=== PATIENT | female | born 1950 | race Caucasian/White ===

== ENCOUNTER 2025-07-10 09:34 | Inpatient (IN) | payer OTHER ==
[~2025-07-10] VITALS: Ht 157.5 cm; Wt 68.9 kg
[2025-07-10] MEDS: SODIUM CHLORIDE 0.9% 1,000 ML IV ONE (09:58)
[2025-07-10] MEDS: PIPERACILLIN/TAZO 3.375G/50ML 50 ML IV ONE (10:06)
[2025-07-10 10:16] LABS: HEMATOCRIT. 33.7 % (36.0-48.0); HEMOGLOBIN. 10.6 g/dL (12.0-16.0); MEAN PLATELET VOLUME 9.4 fl (7.4-10.4); PLATELET 307 x1000/uL (130-400); RED BLOOD CELL COUNT 3.64 mill/uL (4.2-5.4); RED CELL DISTRIBUTION WIDTH 18.2 % (11.6-14.6)
[2025-07-10 10:26] LABS: INR 1.0
[2025-07-10 10:32] LABS: CREATININE 3.6 mg/dL (0.6-1.0)
[2025-07-10 10:33] LABS: UREA NITROGEN BLOOD 28 mg/dL (9-23)
[2025-07-10 10:34] LABS: ASPARTATE AMINOTRANSFERASE 26 IU/L (<34)
[2025-07-10 10:35] LABS: BILIRUBIN DIRECT 0.1 mg/dL (<=3.0); BILIRUBIN TOTAL 0.4 mg/dL (0.1-1.0); PROTEIN TOTAL 6.3 g/dL (6.0-8.3)
[2025-07-10] MEDS: VANCOMYCIN 1G PREMIX 200 ML IV ONE (10:37)
[2025-07-10 10:51] LABS: BAND% 4.0 % (1.0-6.0); LYMPHOCYTES % MANUAL 4.0 % (20.0-60.0); MONOCYTES % MANUAL 3.0 % (2.0-8.0); NEUTROPHILS % MANUAL 89.0 % (45.0-75.0); PLATELET ESTIMATE NORMAL
[2025-07-10] MEDS ORDERED: ENOXAPARIN 40MG/0.4ML SYR SUBCUT SCH (11:45)
[2025-07-10] MEDS ORDERED: MAGNESIUM/ALUMINUM HYDROXIDE/SIMETHICONE 30ML UDC PO PRN (11:45)
[2025-07-10] MEDS ORDERED: SODIUM CHLORIDE 0.9% 1,000 ML IV SCH (12:00)
[2025-07-10] MEDS ORDERED: NALOXONE HCL 0.4MG/ML VIAL IV PRN (12:00)
[2025-07-10 14:00] VITALS: BP 167/60; PULSE 72; RESP 20; TEMP 36.3068
[2025-07-10] MEDS: ENOXAPARIN 30MG/0.3ML SYR SUBCUT SCH (14:07)
[2025-07-10] MEDS: CLONIDINE 0.1MG TABLET PO PRN (14:07)
[2025-07-10] MEDS: PANTOPRAZOLE SODIUM 40 MG/VIAL IV SCH (14:15)
[2025-07-10] MEDS ORDERED: ATOR-2 PO (14:43)
[2025-07-10] MEDS ORDERED: NATE60TA13 PO (14:43)
[2025-07-10] MEDS ORDERED: FURO40TA5 PO (14:43)
[2025-07-10] MEDS ORDERED: HYDR50TA39 PO (14:43)
[2025-07-10] MEDS ORDERED: METO100T16 PO (14:43)
[2025-07-10] MEDS ORDERED: GABA-529 PO (14:43)
[2025-07-10] MEDS ORDERED: CALC667C PO (14:43)
[2025-07-10] MEDS ORDERED: VALS80TA30 PO (14:43)
[2025-07-10] MEDS ORDERED: FERR325T6 PO (14:46)
[2025-07-10] MEDS ORDERED: [UNRECOGNIZED DRUG - OTHER] PO (14:49)
[2025-07-10] MEDS ORDERED: DILT120C46 MT (14:49)
[2025-07-10 16:00] VITALS: BP 121/46; PULSE 71; RESP 20; TEMP 36.3; O2SAT 97
[2025-07-10 18:14] LABS: TROPONIN I HIGH SENSITIVITY 3044 ng/L (3.0-34)
[2025-07-10 20:00] VITALS: BP 134/56; PULSE 75; RESP 18; TEMP 36.3; O2SAT 96
[2025-07-10] MEDS: PIPERACILLIN/TAZO 3.375G/50ML 50 ML IV SCH (20:42)
[2025-07-10 21:22] VITALS: PULSE 75; RESP 18
[2025-07-10] MEDS: IPRATROPIUM/ALBUTEROL 0.5-3(2.5)MG/3ML NEB NEB SCH (21:22)
[2025-07-10] MEDS: ZOLPIDEM TARTRATE 5MG TABLET PO PRN (21:46)
[2025-07-10] MEDS: ACETYLCYSTEINE 200MG/ML 20% VIAL 4ML INH SCH (22:00)
[2025-07-11] VITALS (11 sets, daily range): BP systolic 131–193; BP diastolic 38–72; PULSE 70–101; RESP 16–20; TEMP 36.1–36.9; O2SAT 95–99
[2025-07-11 02:07] LABS: TROPONIN I HIGH SENSITIVITY 7570 ng/L (3.0-34)
[2025-07-11 07:40] LABS: UREA NITROGEN BLOOD 45.0 mg/dL (9-23)
[2025-07-11 07:50] LABS: CREATININE 5.9 mg/dL (0.6-1.0)
[2025-07-11 07:59] LABS: BASOPHILS % 0.5 % (0.0-2.0); EOSINOPHILS % 0.2 % (0.0-5.0); HEMATOCRIT. 33.5 % (36.0-48.0); HEMOGLOBIN. 10.5 g/dL (12.0-16.0); LYMPHOCYTES % 9.1 % (20.0-50.0); MEAN PLATELET VOLUME 9.4 fl (7.4-10.4); MONOCYTES % 7.4 % (2.0-8.0); NEUTROPHILS % 82.8 % (40.0-76.0); PLATELET 266 x1000/uL (130-400); RED BLOOD CELL COUNT 3.63 mill/uL (4.2-5.4); RED CELL DISTRIBUTION WIDTH 18.4 % (11.6-14.6)
[2025-07-11] MEDS: ENOXAPARIN 60MG/0.6ML SYR SUBCUT SCH (13:00)
[2025-07-11 13:25] LABS: HEPATITIS A AB IGM NEGATIVE (Negative); HEPATITIS B CORE AB IGM NEGATIVE (Negative)
[2025-07-11 13:26] LABS: HEPATITIS C AB NON REACTIVE (Neg) (Negative)
[2025-07-11] MEDS: VANCOMYCIN 750MG PMX (XELLIA) 150 ML IV SCH (14:43)
[2025-07-11] MEDS: HYDROCODONE/ACETAMINOPHEN 5/325MG TABLET PO PRN (14:44)
[2025-07-11 15:18] LABS: PROTEIN BODY FLUID 3.7 gm/dL
[2025-07-11] MEDS ORDERED: VALS160T28 (19:55)
[2025-07-11] MEDS ORDERED: NIFE-72 (19:55)
[2025-07-11] MEDS ORDERED: DILT30TA3 PO (19:55)
[2025-07-11] MEDS ORDERED: BLOO-1686 (19:55)
[2025-07-11 23:21] LABS: BODY FLUID MONOCYTES 3 %; BODY FLUID RBC 349500 /cu mm (0-2000); BODY FLUID WBC 59 /cu mm (0-200)
[2025-07-12] VITALS (17 sets, daily range): BP systolic 97–180; BP diastolic 40–80; PULSE 65–147; RESP 14–23; TEMP 36.114–37.5; O2SAT 95–100
[2025-07-12] MEDS: DILTIAZEM HCL 5MG/ML 5ML VIAL IV SCH (01:34)
[2025-07-12] MEDS: METOPROLOL TARTRATE 25MG TABLET PO SCH (01:58)
[2025-07-12 06:31] LABS: HEMATOCRIT. 30.2 % (36.0-48.0); HEMOGLOBIN. 9.8 g/dL (12.0-16.0); MEAN PLATELET VOLUME 9.4 fl (7.4-10.4); PLATELET 238 x1000/uL (130-400); RED BLOOD CELL COUNT 3.31 mill/uL (4.2-5.4); RED CELL DISTRIBUTION WIDTH 18.0 % (11.6-14.6)
[2025-07-12] MEDS: DIGOXIN 500MCG/2ML AMP IV SCH (06:49)
[2025-07-12 07:12] LABS: UREA NITROGEN BLOOD 42.0 mg/dL (9-23)
[2025-07-12 07:31] LABS: CREATININE 6.0 mg/dL (0.6-1.0)
[2025-07-12] MEDS: METOPROLOL TARTRATE 50MG TABLET PO NR (08:44)
[2025-07-12] MEDS ORDERED: ASPIRIN 81MG TABLET PO SCH (09:00)
[2025-07-12] MEDS ORDERED: AMIODARONE HCL 150 MG in DEXT 5% WATER 100 ML IV NR (09:00)
[2025-07-12] MEDS: ASPIRIN 81MG EC TABLET PO SCH (09:51)
[2025-07-12] MEDS: FAMOTIDINE 20MG/2ML VIAL IV SCH (09:51)
[2025-07-12] MEDS: AMIODARONE 150MG/100ML D5W 100 ML IV SCH (11:47)
[2025-07-12] MEDS: AMIODARONE HCL 900 MG in DEXT 5% WATER 482 ML IV SCH (12:00)
[2025-07-12] MEDS: ISOSORBIDE MONONITRATE 30MG TABLET SR 24HR PO SCH (12:40)
[2025-07-12] MEDS: AMLODIPINE 10MG TABLET PO SCH (12:57)
[2025-07-12 13:39] LABS: BAND% 2.0 % (1.0-6.0); EOSINOPHILS % MANUAL 1.0 % (0.0-5.0); LYMPHOCYTES % MANUAL 6.0 % (20.0-60.0); MONOCYTES % MANUAL 2.0 % (2.0-8.0); NEUTROPHILS % MANUAL 89.0 % (45.0-75.0); PLATELET ESTIMATE NORMAL
[2025-07-12] MEDS ORDERED: IOHEXOL-350 100 ML BOTTLE ONE (22:11)
[2025-07-13] VITALS (21 sets, daily range): BP systolic 124–179; BP diastolic 44–89; PULSE 81–96; RESP 13–24; TEMP 36.3–37; O2SAT 90–100
[2025-07-13 07:15] LABS: UREA NITROGEN BLOOD 53.0 mg/dL (9-23)
[2025-07-13 07:23] LABS: BASOPHILS % 0.3 % (0.0-2.0); EOSINOPHILS % 2.6 % (0.0-5.0); HEMATOCRIT. 28.7 % (36.0-48.0); HEMOGLOBIN. 9.2 g/dL (12.0-16.0); LYMPHOCYTES % 7.8 % (20.0-50.0); MEAN PLATELET VOLUME 9.3 fl (7.4-10.4); MONOCYTES % 8.8 % (2.0-8.0); NEUTROPHILS % 80.5 % (40.0-76.0); PLATELET 227 x1000/uL (130-400); RED BLOOD CELL COUNT 3.10 mill/uL (4.2-5.4); RED CELL DISTRIBUTION WIDTH 18.3 % (11.6-14.6)
[2025-07-13 07:33] LABS: CREATININE 7.4 mg/dL (0.6-1.0)
[2025-07-13] MEDS: ACETAMINOPHEN 325MG TABLET PO PRN (13:01)
[2025-07-13] MEDS ORDERED: INSULIN LISPRO 100 UNITS/ML SUBCUT SCH (14:00)
[2025-07-13] MEDS ORDERED: DEXTROSE 50% WATER 50ML SYRINGE IV PRN (14:15)
[2025-07-13] MEDS: INSULIN LISPRO 100 UNITS/ML SUBCUT SCH (14:15)
[2025-07-13] MEDS: BLOOD SUGAR DIAGNOSTIC STRIP TEST SCH (14:15)
[2025-07-13] MEDS ORDERED: BLOOD SUGAR DIAGNOSTIC STRIP TEST SCH (17:30)
[2025-07-14] VITALS (20 sets, daily range): BP systolic 97–175; BP diastolic 50–81; PULSE 82–138; RESP 15–19; TEMP 36.3918–37.2; O2SAT 95–100
[2025-07-14 09:49] LABS: BASOPHILS % 0.5 % (0.0-2.0); EOSINOPHILS % 2.5 % (0.0-5.0); HEMATOCRIT. 27.7 % (36.0-48.0); HEMOGLOBIN. 9.0 g/dL (12.0-16.0); LYMPHOCYTES % 7.7 % (20.0-50.0); MEAN PLATELET VOLUME 9.0 fl (7.4-10.4); MONOCYTES % 8.0 % (2.0-8.0); NEUTROPHILS % 81.3 % (40.0-76.0); PLATELET 239 x1000/uL (130-400); RED BLOOD CELL COUNT 3.03 mill/uL (4.2-5.4); RED CELL DISTRIBUTION WIDTH 18.5 % (11.6-14.6)
[2025-07-14 10:03] LABS: UREA NITROGEN BLOOD 71.0 mg/dL (9-23)
[2025-07-14] MEDS ORDERED: AMIODARONE HCL 900 MG in DEXT 5% WATER 482 ML IV SCH (11:00)
[2025-07-14 11:01] LABS: CREATININE 8.7 mg/dL (0.6-1.0)
[2025-07-14] MEDS: DIGOXIN 500MCG/2ML AMP IV SCH (11:42)
[2025-07-14] MEDS: IPRATROPIUM/ALBUTEROL 0.5-3(2.5)MG/3ML NEB HHN PRN (21:20)
[2025-07-14] MEDS: HYDRALAZINE 20MG/ML VIAL IV PRN (22:23)
[2025-07-14] MEDS ORDERED: HYDRALAZINE 20MG/ML VIAL IV PRN (22:30)
[2025-07-15] VITALS (13 sets, daily range): BP systolic 155–172; BP diastolic 51–68; PULSE 90–106; RESP 17–21; TEMP 36.8–37.3; O2SAT 95–100
[2025-07-15] MEDS ORDERED: HYDRALAZINE 20MG/ML VIAL IV SCH
[2025-07-15 07:39] LABS: HEMATOCRIT. 31.1 % (36.0-48.0); HEMOGLOBIN. 10.0 g/dL (12.0-16.0); MEAN PLATELET VOLUME 8.5 fl (7.4-10.4); PLATELET 295 x1000/uL (130-400); RED BLOOD CELL COUNT 3.38 mill/uL (4.2-5.4); RED CELL DISTRIBUTION WIDTH 18.8 % (11.6-14.6)
[2025-07-15 07:56] LABS: UREA NITROGEN BLOOD 62.0 mg/dL (9-23)
[2025-07-15 07:58] LABS: CREATININE 8.1 mg/dL (0.6-1.0)
[2025-07-15] MEDS ORDERED: LIDOCAINE HCL 1% 10 MG/ML 10ML VIAL ONE (09:16)
[2025-07-15] MEDS ORDERED: MIDAZOLAM HCL 2 MG/2 ML VIAL ONE (09:16)
[2025-07-15] MEDS ORDERED: DIPHENHYDRAMINE 50MG/ML VIAL ONE (09:16)
[2025-07-15] MEDS ORDERED: VERAPAMIL HCL 2.5 MG/1 ML 2ML VIAL IV ONE (09:16)
[2025-07-15] MEDS ORDERED: FENTANYL CITRATE/PF 50MCG/ML 2ML VIAL ONE (09:16)
[2025-07-15] MEDS ORDERED: HEPARIN 1000 UNITS/ML 10ML ONE (09:17)
[2025-07-15] MEDS ORDERED: IODIXANOL 320MG/ML 100 ML BOTTLE IV ONE (09:17)
[2025-07-15] MEDS ORDERED: ATROPINE SULFATE 1MG/10ML SYR IV PRN (10:45)
[2025-07-15 12:54] LABS: BAND% 2.0 % (1.0-6.0); EOSINOPHILS % MANUAL 2.0 % (0.0-5.0); LYMPHOCYTES % MANUAL 9.0 % (20.0-60.0); MONOCYTES % MANUAL 2.0 % (2.0-8.0); NEUTROPHILS % MANUAL 85.0 % (45.0-75.0)
[2025-07-15 12:55] LABS: PLATELET ESTIMATE NORMAL
[2025-07-16] VITALS (21 sets, daily range): BP systolic 85–218; BP diastolic 54–150; PULSE 82–138; RESP 14–25; TEMP 36.6–37.1; O2SAT 68–100
[2025-07-16 08:05] LABS: HEMATOCRIT. 32.5 % (36.0-48.0); HEMOGLOBIN. 10.3 g/dL (12.0-16.0); MEAN PLATELET VOLUME 9.0 fl (7.4-10.4); PLATELET 283 x1000/uL (130-400); RED BLOOD CELL COUNT 3.52 mill/uL (4.2-5.4); RED CELL DISTRIBUTION WIDTH 19.3 % (11.6-14.6)
[2025-07-16 08:20] LABS: UREA NITROGEN BLOOD 71.0 mg/dL (9-23)
[2025-07-16 09:11] LABS: CREATININE 9.4 mg/dL (0.6-1.0)
[2025-07-16] MEDS: ACETAMINOPHEN 325MG TABLET PO PRN (09:15)
[2025-07-16] MEDS ORDERED: AMLO10TA80 PO (09:18)
[2025-07-16] MEDS ORDERED: ASPI-1406 PO (09:18)
[2025-07-16] MEDS ORDERED: APIX2.5T MT (09:18)
[2025-07-16] MEDS: DILTIAZEM HCL 5MG/ML 5ML VIAL IV NR (12:02)
[2025-07-16] MEDS: METOPROLOL TARTRATE 50MG TABLET PO SCH (13:29)
[2025-07-16 14:16] LABS: BAND% 4.0 % (1.0-6.0); EOSINOPHILS % MANUAL 1.0 % (0.0-5.0); LYMPHOCYTES % MANUAL 8.0 % (20.0-60.0); MONOCYTES % MANUAL 4.0 % (2.0-8.0); NEUTROPHILS % MANUAL 83.0 % (45.0-75.0); PLATELET ESTIMATE NORMAL
[2025-07-16] MEDS: ISOSORBIDE MONONITRATE 30MG TABLET SR 24HR PO SCH (14:52)
[2025-07-16] MEDS: AMLODIPINE 10MG TABLET PO SCH (14:53)
[2025-07-16] MEDS: ONDANSETRON HCL 4MG/2ML INJ IV PRN (18:10)
[2025-07-16] MEDS: DIGOXIN 500MCG/2ML AMP IV SCH (22:22)
[2025-07-17] VITALS (13 sets, daily range): BP systolic 120–169; BP diastolic 47–100; PULSE 70–87; RESP 14–24; TEMP 36.7–37.3; O2SAT 93–98
[2025-07-17] MEDS: ZOLPIDEM TARTRATE 5MG TABLET PO PRN (00:13)
[2025-07-17] MEDS: DIGOXIN 500MCG/2ML AMP IV SCH (03:30)
[2025-07-17] MEDS ORDERED: ISOS30TA91 PO (10:26)
[2025-07-17] MEDS ORDERED: METO-539 PO (10:26)
[2025-07-17 16:01] LABS: INR 1.1
[2025-07-18] VITALS (19 sets, daily range): BP systolic 129–180; BP diastolic 47–86; PULSE 73–117; RESP 16–25; TEMP 36.5–37.2; O2SAT 91–99
[2025-07-19] VITALS (9 sets, daily range): BP systolic 132–164; BP diastolic 38–70; PULSE 73–96; RESP 15–21; TEMP 36.6–37.6; O2SAT 92–100
[2025-07-19] MEDS ORDERED: SODIUM BICARBONATE 4.2% 2.5MEQ/5ML VIAL IV ONE (07:43)
== END 2025-07-19 15:07 | disposition home or self-care (01) | DRG 871 ==
LOC: ER 09:34 → 7WST 11:31 → EDBEDREQSVC 11:38 → 5EST 07-12 11:36
PROVIDERS: ADMIT Internal Medicine; ATTEND Internal Medicine
PROC: 0W9B3ZZ Drainage of Left Pleural Cavity, Percutaneous Approach (ICD-10-PCS; 2025-07-11)
PROC: 5A1D70Z Performance of Urinary Filtration, Intermittent, Less than 6 Hours Per Day (ICD-10-PCS; 2025-07-11)
PROC: 5A1D70Z Performance of Urinary Filtration, Intermittent, Less than 6 Hours Per Day (ICD-10-PCS; 2025-07-14)
PROC: 4A023N7 Measurement of Cardiac Sampling and Pressure, Left Heart, Percutaneous Approach (ICD-10-PCS; principal; 2025-07-15)
PROC: B2111ZZ Fluoroscopy of Multiple Coronary Arteries using Low Osmolar Contrast (ICD-10-PCS; 2025-07-15)
PROC: 5A1D70Z Performance of Urinary Filtration, Intermittent, Less than 6 Hours Per Day (ICD-10-PCS; 2025-07-16)
PROC: 0W9G3ZZ Drainage of Peritoneal Cavity, Percutaneous Approach (ICD-10-PCS; 2025-07-18)
PROC: 5A1D70Z Performance of Urinary Filtration, Intermittent, Less than 6 Hours Per Day (ICD-10-PCS; 2025-07-18)
PROC: 0W9B3ZX Drainage of Left Pleural Cavity, Percutaneous Approach, Diagnostic (ICD-10-PCS; 2025-07-19)
DX: A41.9 Sepsis, unspecified organism (principal); I21.4 Non-ST elevation (NSTEMI) myocardial infarction; J18.9 Pneumonia, unspecified organism; N18.6 End stage renal disease; J96.01 Acute respiratory failure with hypoxia; I50.31 Acute diastolic (congestive) heart failure; J90 Pleural effusion, not elsewhere classified; I13.2 Hypertensive heart and chronic kidney disease with heart failure and with stage 5 chronic kidney disease, or end stage renal disease; C56.9 Malignant neoplasm of unspecified ovary; R18.8 Other ascites; J98.11 Atelectasis; E87.20 Acidosis, unspecified; I16.0 Hypertensive urgency; E11.22 Type 2 diabetes mellitus with diabetic chronic kidney disease; R65.20 Severe sepsis without septic shock; I25.10 Atherosclerotic heart disease of native coronary artery without angina pectoris; I48.91 Unspecified atrial fibrillation; D63.8 Anemia in other chronic diseases classified elsewhere; F41.9 Anxiety disorder, unspecified; Z99.2 Dependence on renal dialysis
CPT/HCPCS: 32555; 36415; 49083; 71045; 71275; 76604; 76705; 80048; 80076; 80202; 82962; 83036; 83605; 83615; 84145; 84443; 84484; 85025; 86705; 86709; 87340; 88108; 90935; 93005; 93306; 93458; 93970; 94070; 94640; 94664; 98960; 99291; A4606; C1769; C1887; C1893; J0282; J0360; J1160; J1200; J1308; J1644; J1650; J1815; J2003; J2250; J2405; J2470; J2543; J3010; J3373; J3490; J7030; J7060; J7608; Q9967

== ENCOUNTER 2025-07-22 13:21 | Inpatient (IN) | payer OTHER ==
[2025-07-22] VITALS (9 sets, daily range): BP systolic 107–196; BP diastolic 45–153; PULSE 92–102; RESP 18–22; TEMP 36.418; O2SAT 87–100
[~2025-07-22] VITALS: Ht 152.4 cm; Wt 64.9 kg
[~2025-07-22 13:21] MED LIST: AMLO10TA80 PO; APIX2.5T MT; ASPI-1406 PO; ATOR-2 PO; BLOO-1686; CALC667C PO; FERR325T6 PO; FURO40TA5 PO; GABA-529 PO; HYDR50TA39 PO; ISOS30TA91 PO; METO-539 PO; METO100T16 PO; NATE60TA13 PO; NIFE-72; VALS160T28
[2025-07-22] MEDS ORDERED: LIDOCAINE HCL 1% 20ML VIAL INFIL ONE (14:45)
[2025-07-22 15:15] LABS: HEMATOCRIT. 32.4 % (36.0-48.0); HEMOGLOBIN. 10.3 g/dL (12.0-16.0); MEAN PLATELET VOLUME 8.7 fl (7.4-10.4); PLATELET 420 x1000/uL (130-400); RED BLOOD CELL COUNT 3.54 mill/uL (4.2-5.4); RED CELL DISTRIBUTION WIDTH 18.5 % (11.6-14.6)
[2025-07-22 15:27] LABS: INR 1.0
[2025-07-22 15:29] LABS: UREA NITROGEN BLOOD 25 mg/dL (9-23)
[2025-07-22 15:31] LABS: ASPARTATE AMINOTRANSFERASE 17 IU/L (<34); BILIRUBIN DIRECT < 0.1 mg/dL (<=3.0); BILIRUBIN TOTAL 0.2 mg/dL (0.1-1.0); PROTEIN TOTAL 5.7 g/dL (6.0-8.3)
[2025-07-22 15:43] LABS: CREATININE 4.7 mg/dL (0.6-1.0); TROPONIN I HIGH SENSITIVITY 73 ng/L (3.0-34)
[2025-07-22] MEDS: AZITHROMYCIN 500MG/250ML 250 ML IV NR (16:00)
[2025-07-22] MEDS: CEFTRIAXONE 1GM/50ML 50 ML IV NR (16:00)
[2025-07-22] MEDS ORDERED: MIDAZOLAM HCL 2 MG/2 ML VIAL ONE ×3 (16:42→19:33)
[2025-07-22] MEDS ORDERED: NOREPINEPHRINE 8MG/250ML PMX 250 ML IV ONE (16:59)
[2025-07-22] MEDS: MIDAZOLAM HCL 2 MG/2 ML VIAL IV ONE (17:17)
[2025-07-22] MEDS: NOREPINEPHRINE 8MG/250ML PMX 250 ML IV ONE (17:17)
[2025-07-22] MEDS: SODIUM CHLORIDE 0.9% 3,000 ML IV ONE (17:18)
[2025-07-22] MEDS ORDERED: EPINEPHRINE 0.1MG/ML (1:10,000) 10ML SYR ONE (17:50)
[2025-07-22] MEDS ORDERED: FENTANYL CITRATE/PF 50MCG/ML 2ML VIAL ONE (17:51)
[2025-07-22] MEDS ORDERED: ATROPINE SULFATE 1MG/10ML SYR ONE (17:51)
[2025-07-22] MEDS ORDERED: LIDOCAINE HCL 1% 20ML VIAL ONE (17:51)
[2025-07-22 17:54] LABS: BAND% 1.0 % (1.0-6.0); LYMPHOCYTES % MANUAL 6.0 % (20.0-60.0); MONOCYTES % MANUAL 4.0 % (2.0-8.0); NEUTROPHILS % MANUAL 89.0 % (45.0-75.0); PLATELET ESTIMATE SLIGHTLY INCREASED
[2025-07-22] MEDS ORDERED: EPINEPHRINE 5 MG in DEXT 5% WATER 250 ML IV PRN (18:00)
[2025-07-22] MEDS ORDERED: DOPAMINE 400MG/250ML PREMIX 250 ML IV PRN (18:00)
[2025-07-22] MEDS ORDERED: INSULIN REGULAR 100U/100ML PMX 100 ML IV NR (18:00)
[2025-07-22] MEDS ORDERED: DEXTROSE 50% WATER 50ML SYRINGE IV PRN (18:00)
[2025-07-22] MEDS ORDERED: NICARDIPINE 40MG/200ML PREMIX 200 ML IV PRN (18:00)
[2025-07-22] MEDS ORDERED: DOBUTAMINE 250 MG/250 ML PREMIX IV PRN (18:00)
[2025-07-22] MEDS ORDERED: AMINOCAPROIC ACID 5,000 MG in SODIUM CHLORIDE 0.9% 250 ML IV PRN (18:00)
[2025-07-22] MEDS ORDERED: PAPAVERINE HCL 180MG in SODIUM CHLORIDE 0.9% 24ML IV PRN (18:00)
[2025-07-22] MEDS ORDERED: NOREPINEPHRINE 8MG/250ML PMX 250 ML IV PRN (18:00)
[2025-07-22] MEDS ORDERED: SKIN ADHESIVE 0.7 GM EA TOP ONE (18:17)
[2025-07-22] MEDS ORDERED: POLYMYXIN B SULFATE 500000 UNITS/VIAL ONE (18:17)
[2025-07-22] MEDS ORDERED: THROMBIN (BOVINE) 5000 UNITS/VIAL TOP ONE ×2 (18:17→18:18)
[2025-07-22] MEDS: INSULIN LISPRO 100 UNITS/ML SUBCUT SCH (18:20)
[2025-07-22] MEDS ORDERED: DEL NIDO CARDIOPLEGIA 1,000 ML (PREMIX) IV NR (18:48)
[2025-07-22] MEDS ORDERED: HEPARIN 1000 UNITS/ML 10ML ONE (18:50)
[2025-07-22] MEDS ORDERED: SEVOFLURANE 250 ML LIQUID INH ONE (18:50)
[2025-07-22] MEDS ORDERED: NITROGLYCERIN 50MG PREMIX 250 ML IV ONE (18:50)
[2025-07-22] MEDS ORDERED: ELECTROLYTE IV PRN (19:00)
[2025-07-22] MEDS ORDERED: PHENYLEPHRINE HCL 10MG/ML 1ML IV ONE (19:59)
[2025-07-22] MEDS: BLOOD SUGAR DIAGNOSTIC STRIP TEST SCH (21:00)
[2025-07-22] MEDS ORDERED: HYDROCODONE/ACETAMINOPHEN 5/325MG TABLET PO PRN (23:00)
[2025-07-22] MEDS ORDERED: MAGNESIUM/ALUMINUM HYDROXIDE/SIMETHICONE 30ML UDC PO PRN (23:00)
[2025-07-22] MEDS: MORPHINE SULFATE 2 MG/ML INJ (NOT FOR IM USE) IV PRN (23:44)
[2025-07-23] VITALS (78 sets, daily range): BP systolic 103–179; BP diastolic 37–67; PULSE 76–100; RESP 13–24; TEMP 36.9–37.7; O2SAT 89–100
[2025-07-23] MEDS: SODIUM CHLORIDE 0.9% 1,000 ML IV SCH (00:30)
[2025-07-23 00:54] LABS: TROPONIN I HIGH SENSITIVITY 4336 ng/L (3.0-34)
[2025-07-23] MEDS: CLONIDINE 0.1MG TABLET PO PRN (04:42)
[2025-07-23] MEDS: VANCOMYCIN 1.25GM/250ML IV NR (04:43)
[2025-07-23 05:36] LABS: HEMATOCRIT. 26.7 % (36.0-48.0); HEMOGLOBIN. 8.6 g/dL (12.0-16.0); MEAN PLATELET VOLUME 8.5 fl (7.4-10.4); PLATELET 363 x1000/uL (130-400); RED BLOOD CELL COUNT 2.94 mill/uL (4.2-5.4); RED CELL DISTRIBUTION WIDTH 18.6 % (11.6-14.6)
[2025-07-23 05:44] LABS: UREA NITROGEN BLOOD 36.0 mg/dL (9-23)
[2025-07-23 05:50] LABS: CREATININE 5.2 mg/dL (0.6-1.0); TROPONIN I HIGH SENSITIVITY 4377.0 ng/L (3.0-34)
[2025-07-23] MEDS ORDERED: NALOXONE HCL 0.4MG/ML VIAL IV PRN (06:30)
[2025-07-23] MEDS: PANTOPRAZOLE SODIUM 40 MG/VIAL IV SCH (09:06)
[2025-07-23] MEDS: PIPERACILLIN/TAZO 3.375G/50ML 50 ML IV SCH (09:06)
[2025-07-23] MEDS: FUROSEMIDE 40MG TABLET PO SCH (09:06)
[2025-07-23] MEDS: HYDRALAZINE HCL 50MG TABLET PO SCH (09:07)
[2025-07-23] MEDS: AMLODIPINE 10MG TABLET PO SCH (09:07)
[2025-07-23] MEDS: CALCIUM ACETATE 667MG CAPSULE PO SCH (09:07)
[2025-07-23] MEDS: ENOXAPARIN 30MG/0.3ML SYR SUBCUT SCH (09:08)
[2025-07-23] MEDS: METOPROLOL TARTRATE 50MG TABLET PO SCH (09:08)
[2025-07-23] MEDS: ISOSORBIDE MONONITRATE 30MG TABLET SR 24HR PO SCH (09:08)
[2025-07-23 09:21] LABS: PHOSPHORUS 4.6 mg/dL (2.5-4.9)
[2025-07-23 09:58] LABS: HEPATITIS A AB IGM NEGATIVE (Negative)
[2025-07-23 09:59] LABS: HEPATITIS B CORE AB IGM NEGATIVE (Negative); HEPATITIS C AB NON REACTIVE (Neg) (Negative)
[2025-07-23 15:11] LABS: LYMPHOCYTES % MANUAL 5.0 % (20.0-60.0); MONOCYTES % MANUAL 4.0 % (2.0-8.0); NEUTROPHILS % MANUAL 91.0 % (45.0-75.0); PLATELET ESTIMATE NORMAL
[2025-07-23] MEDS: ATORVASTATIN CALCIUM 40MG TABLET PO SCH (20:46)
[2025-07-23] MEDS: IPRATROPIUM/ALBUTEROL 0.5-3(2.5)MG/3ML NEB HHN SCH (20:54)
[2025-07-23] MEDS: ZOLPIDEM TARTRATE 5MG TABLET PO PRN (20:56)
[2025-07-24] VITALS (111 sets, daily range): BP systolic 80–175; BP diastolic 40–83; PULSE 70–138; RESP 12–31; TEMP 36.114–38.5; O2SAT 89–100
[2025-07-24] MEDS: ACETAMINOPHEN 325MG TABLET PO PRN (00:38)
[2025-07-24 06:17] LABS: HEMATOCRIT. 24.0 % (36.0-48.0); HEMOGLOBIN. 7.4 g/dL (12.0-16.0); MEAN PLATELET VOLUME 9.1 fl (7.4-10.4); PLATELET 327 x1000/uL (130-400); RED BLOOD CELL COUNT 2.55 mill/uL (4.2-5.4); RED CELL DISTRIBUTION WIDTH 18.4 % (11.6-14.6)
[2025-07-24 06:51] LABS: UREA NITROGEN BLOOD 42.0 mg/dL (9-23)
[2025-07-24 06:59] LABS: CREATININE 6.6 mg/dL (0.6-1.0)
[2025-07-24 09:38] LABS: LYMPHOCYTES % MANUAL 9.0 % (20.0-60.0); MONOCYTES % MANUAL 6.0 % (2.0-8.0); NEUTROPHILS % MANUAL 85.0 % (45.0-75.0)
[2025-07-24 09:39] LABS: PLATELET ESTIMATE NORMAL
[2025-07-24] MEDS: MIDODRINE HCL 5MG TABLET PO SCH (10:44)
[2025-07-24] MEDS: VANCOMYCIN 750MG PMX (XELLIA) 150 ML IV SCH (11:23)
[2025-07-24] MEDS: ENOXAPARIN 40MG/0.4ML SYR SUBCUT NR (13:22)
[2025-07-24] MEDS: ALBUMIN HUMAN 12.5G/250ML (5%) IV NR (14:18)
[2025-07-24] MEDS: DIGOXIN 500MCG/2ML AMP IV SCH ×2 (14:19→18:00)
[2025-07-24] MEDS: AMIODARONE 150MG/100ML D5W 100 ML IV NR (19:49)
[2025-07-24] MEDS: AMIODARONE 360MG/200ML 200 ML IV SCH (19:54)
[2025-07-25] VITALS (107 sets, daily range): BP systolic 88–191; BP diastolic 38–75; PULSE 52–123; RESP 0–30; TEMP 36.6–37.2; O2SAT 90–100
[2025-07-25] MEDS: MIDAZOLAM 100MG/100ML PMX 100 ML IV PRN (02:10)
[2025-07-25] MEDS: FENTANYL 2500MCG/250ML PMX 250 ML IV PRN (02:10)
[2025-07-25 06:32] LABS: HEMATOCRIT. 23.3 % (36.0-48.0); HEMOGLOBIN. 7.2 g/dL (12.0-16.0); MEAN PLATELET VOLUME 8.8 fl (7.4-10.4); PLATELET 352 x1000/uL (130-400); RED BLOOD CELL COUNT 2.54 mill/uL (4.2-5.4); RED CELL DISTRIBUTION WIDTH 18.3 % (11.6-14.6)
[2025-07-25 06:55] LABS: UREA NITROGEN BLOOD 40.0 mg/dL (9-23)
[2025-07-25 06:59] LABS: CREATININE 6.7 mg/dL (0.6-1.0)
[2025-07-25] MEDS: ENOXAPARIN 60MG/0.6ML SYR SUBCUT SCH (08:39)
[2025-07-25] MEDS: METHYLPREDNISOLONE SOD SUCC 125MG/2ML (ACT-O-VIAL) IV SCH (08:47)
[2025-07-25 08:49] LABS: BG BASE EXCESS -0.5 mmol/L (-2.0-3.0); BG CARBOXYHEMOGLOBIN 0.2 % (0.5-1.5); BG DEOXYHEMOGLOBIN 1.4 % (0.0-5.0); BG FRACTION INSPIRED OXYGEN 70; BG HCO3 ACT 24.3 mmol/L (21.0-28.0); BG METHEMOGLOBIN 0.3 % (0.5-1.5); BG OXYGEN SATURATION 98.6 % (94.0-98.0); BG OXYHEMOGLOBIN 98.1 % (94.0-98.0); BG PCO2 40.3 mmHg (32.0-45.0); BG PEEP (cmH2O) 5.0 cmH2O; BG PH 7.398 (7.350-7.450); BG PO2 114.0 mmHg (83.0-108.0); BG SAMPLE SITE RIGHT RADIAL; BG TIDAL VOLUME(mL) 450.0 mL; BG TOTAL HEMOGLOBIN 8.1 g/dL (12.0-16.0); BG TOTAL RESPIRATORY RATE 16 b/min; BG VENT MODE VENT - AC; BG VENT RATE 16.0 set
[2025-07-25 08:49] LABS: BAND% 4.0 % (1.0-6.0); LYMPHOCYTES % MANUAL 6.0 % (20.0-60.0); MONOCYTES % MANUAL 9.0 % (2.0-8.0); NEUTROPHILS % MANUAL 81.0 % (45.0-75.0); PLATELET ESTIMATE NORMAL
[2025-07-25] MEDS: PHENYLEPHRINE 50MG/250ML PMX 250 ML IV PRN (10:55)
[2025-07-25] MEDS: NOREPINEPHRINE 8MG/250ML PMX 250 ML IV PRN (11:04)
[2025-07-25] MEDS: DOPAMINE 800MG PREMIX (DOUBLE) 250 ML IV PRN (11:23)
[2025-07-25] MEDS: AMIODARONE 200MG TABLET PO SCH (13:27)
[2025-07-25] MEDS: DIGOXIN 500MCG/2ML AMP IV SCH (21:53)
[2025-07-26] VITALS (107 sets, daily range): BP systolic 69–161; BP diastolic 40–76; PULSE 67–121; RESP 14–29; TEMP 35.9–36.6; O2SAT 93–100
[2025-07-26] MEDS ORDERED: DOPAMINE 400MG/250ML PREMIX 250 ML IV PRN (03:30)
[2025-07-26] MEDS: MIDODRINE HCL 5MG TABLET PO SCH (08:53)
[2025-07-26 09:54] LABS: BG BASE EXCESS -3.6 mmol/L (-2.0-3.0); BG CARBOXYHEMOGLOBIN 1.4 % (0.5-1.5); BG DEOXYHEMOGLOBIN 5.2 % (0.0-5.0); BG FRACTION INSPIRED OXYGEN 50; BG HCO3 ACT 20.9 mmol/L (21.0-28.0); BG METHEMOGLOBIN 0.3 % (0.5-1.5); BG OXYGEN SATURATION 94.7 % (94.0-98.0); BG OXYHEMOGLOBIN 93.1 % (94.0-98.0); BG PCO2 35.6 mmHg (32.0-45.0); BG PEEP (cmH2O) 5.0 cmH2O; BG PH 7.387 (7.350-7.450); BG PO2 80.1 mmHg (83.0-108.0); BG SAMPLE SITE RIGHT RADIAL; BG TIDAL VOLUME(mL) 450.0 mL; BG TOTAL HEMOGLOBIN 9.2 g/dL (12.0-16.0); BG VENT MODE VENT - AC; BG VENT RATE 16.0 set
[2025-07-26 12:17] LABS: HEMATOCRIT. 24.1 % (36.0-48.0); HEMOGLOBIN. 7.7 g/dL (12.0-16.0); MEAN PLATELET VOLUME 8.9 fl (7.4-10.4); PLATELET 388 x1000/uL (130-400); RED BLOOD CELL COUNT 2.66 mill/uL (4.2-5.4); RED CELL DISTRIBUTION WIDTH 18.7 % (11.6-14.6)
[2025-07-26 12:22] LABS: INR 1.1
[2025-07-26 12:28] LABS: UREA NITROGEN BLOOD 49 mg/dL (9-23)
[2025-07-26 12:29] LABS: ASPARTATE AMINOTRANSFERASE 17 IU/L (<34); PHOSPHORUS 7.1 mg/dL (2.5-4.9)
[2025-07-26 12:30] LABS: BILIRUBIN TOTAL 0.2 mg/dL (0.1-1.0); PROTEIN TOTAL 4.6 g/dL (6.0-8.3)
[2025-07-26 12:49] LABS: BAND% 3.0 % (1.0-6.0); LYMPHOCYTES % MANUAL 3.0 % (20.0-60.0); MONOCYTES % MANUAL 2.0 % (2.0-8.0); NEUTROPHILS % MANUAL 92.0 % (45.0-75.0); PLATELET ESTIMATE NORMAL
[2025-07-26 13:16] LABS: CREATININE 7.8 mg/dL (0.6-1.0)
[2025-07-26 18:12] LABS: LACTATE DEHYDROGENASE 292 IU/L (120-246)
[2025-07-26] MEDS: VANCOMYCIN 500 MG in DEXT 5% WATER 100 ML IV SCH (20:12)
[2025-07-26] MEDS: EPOETIN ALFA-EPBX 4,000 UNITS/ML VIAL SUBCUT SCH (20:12)
[2025-07-27] VITALS (110 sets, daily range): BP systolic 92–168; BP diastolic 39–83; PULSE 73–119; RESP 14–32; TEMP 36.2–37; O2SAT 94–100
[2025-07-27 05:38] LABS: HEMATOCRIT. 28.5 % (36.0-48.0); HEMOGLOBIN. 8.9 g/dL (12.0-16.0); MEAN PLATELET VOLUME 9.0 fl (7.4-10.4); PLATELET 561 x1000/uL (130-400); RED BLOOD CELL COUNT 3.14 mill/uL (4.2-5.4); RED CELL DISTRIBUTION WIDTH 18.5 % (11.6-14.6)
[2025-07-27 05:55] LABS: UREA NITROGEN BLOOD 48 mg/dL (9-23)
[2025-07-27 06:12] LABS: CREATININE 6.7 mg/dL (0.6-1.0)
[2025-07-27] MEDS ORDERED: SODIUM BICARBONATE 4.2% 2.5MEQ/5ML VIAL IV ONE (07:58)
[2025-07-27 10:48] LABS: BG BASE EXCESS -6.1 mmol/L (-2.0-3.0); BG CARBOXYHEMOGLOBIN 0.4 % (0.5-1.5); BG DEOXYHEMOGLOBIN 2.2 % (0.0-5.0); BG FRACTION INSPIRED OXYGEN 50; BG HCO3 ACT 18.6 mmol/L (21.0-28.0); BG METHEMOGLOBIN 0.3 % (0.5-1.5); BG OXYGEN SATURATION 97.8 % (94.0-98.0); BG OXYHEMOGLOBIN 97.1 % (94.0-98.0); BG PCO2 33.6 mmHg (32.0-45.0); BG PEEP (cmH2O) 5.0 cmH2O; BG PH 7.361 (7.350-7.450); BG PO2 114.3 mmHg (83.0-108.0); BG SAMPLE SITE RIGHT RADIAL; BG TIDAL VOLUME(mL) 450.0 mL; BG TOTAL HEMOGLOBIN 9.6 g/dL (12.0-16.0); BG VENT MODE VENT - AC; BG VENT RATE 16.0 set
[2025-07-27 10:55] LABS: PROTEIN BODY FLUID 2.1 gm/dL
[2025-07-27 11:57] LABS: BODY FLUID WBC 80 /cu mm (0-200)
[2025-07-27 11:58] LABS: BODY FLUID RBC 32000 /cu mm (0-2000)
[2025-07-27 14:29] LABS: BAND% 3.0 % (1.0-6.0); MONOCYTES % MANUAL 4.0 % (2.0-8.0); NEUTROPHILS % MANUAL 93.0 % (45.0-75.0)
[2025-07-27 14:30] LABS: PLATELET ESTIMATE MARKEDLY INCREASED
[2025-07-27] MEDS: DIGOXIN 500MCG/2ML AMP IV SCH (17:28)
[2025-07-27] MEDS ORDERED: AMIODARONE 200MG TABLET PO SCH (21:00)
[2025-07-28] VITALS (100 sets, daily range): BP systolic 92–154; BP diastolic 29–69; PULSE 67–120; RESP 9–21; TEMP 36.33624–36.7; O2SAT 97–100
[2025-07-28 07:18] LABS: HEMATOCRIT. 28.4 % (36.0-48.0); HEMOGLOBIN. 8.6 g/dL (12.0-16.0); MEAN PLATELET VOLUME 9.2 fl (7.4-10.4); PLATELET 434 x1000/uL (130-400); RED BLOOD CELL COUNT 2.96 mill/uL (4.2-5.4); RED CELL DISTRIBUTION WIDTH 19.4 % (11.6-14.6)
[2025-07-28 09:13] LABS: BG BASE EXCESS -6.8 mmol/L (-2.0-3.0); BG CARBOXYHEMOGLOBIN 0.4 % (0.5-1.5); BG DEOXYHEMOGLOBIN 2.3 % (0.0-5.0); BG FRACTION INSPIRED OXYGEN 40; BG HCO3 ACT 18.0 mmol/L (21.0-28.0); BG METHEMOGLOBIN 0.3 % (0.5-1.5); BG OXYGEN SATURATION 97.7 % (94.0-98.0); BG OXYHEMOGLOBIN 97.0 % (94.0-98.0); BG PCO2 33.4 mmHg (32.0-45.0); BG PEEP (cmH2O) 5.0 cmH2O; BG PH 7.350 (7.350-7.450); BG PO2 112.9 mmHg (83.0-108.0); BG SAMPLE SITE RIGHT RADIAL; BG TIDAL VOLUME(mL) 450.0 mL; BG TOTAL HEMOGLOBIN 9.2 g/dL (12.0-16.0); BG VENT MODE VENT - AC; BG VENT RATE 16.0 set
[2025-07-28 10:04] LABS: BAND% 2.0 % (1.0-6.0); LYMPHOCYTES % MANUAL 5.0 % (20.0-60.0); MONOCYTES % MANUAL 1.0 % (2.0-8.0); NEUTROPHILS % MANUAL 92.0 % (45.0-75.0); PLATELET ESTIMATE INCREASED
[2025-07-28 11:35] LABS: UREA NITROGEN BLOOD 58 mg/dL (9-23)
[2025-07-28 11:41] LABS: CREATININE 8.2 mg/dL (0.6-1.0)
[2025-07-28] MEDS: BLOOD SUGAR DIAGNOSTIC STRIP TEST SCH (11:51)
[2025-07-28] MEDS ORDERED: INSULIN LISPRO 100 UNITS/ML SUBCUT SCH (12:00)
[2025-07-28] MEDS ORDERED: METHYLPREDNISOLONE SOD SUCC 40MG/ML (ACT-O-VIAL) IV SCH (12:00)
[2025-07-28] MEDS: INSULIN LISPRO 100 UNITS/ML SUBCUT NR (12:12)
[2025-07-28] MEDS: METHYLPREDNISOLONE SOD SUCC 40MG/ML (ACT-O-VIAL) IV SCH (12:13)
[2025-07-28] MEDS: INSULIN LISPRO 100 UNITS/ML SUBCUT SCH (17:36)
[2025-07-28] MEDS: DIGOXIN 500MCG/2ML AMP IV SCH (17:45)
[2025-07-28] MEDS: DOCUSATE SODIUM SUGAR FREE 100MG/10ML UDC NG SCH (20:12)
[2025-07-28] MEDS: VANCOMYCIN 500 MG in DEXT 5% WATER 100 ML IV SCH (20:13)
[2025-07-29] VITALS (87 sets, daily range): BP systolic 116–173; BP diastolic 39–74; PULSE 75–105; RESP 11–24; TEMP 36.5–37; O2SAT 97–100
[2025-07-29 06:32] LABS: HEMATOCRIT. 26.5 % (36.0-48.0); HEMOGLOBIN. 8.2 g/dL (12.0-16.0); MEAN PLATELET VOLUME 8.8 fl (7.4-10.4); PLATELET 369 x1000/uL (130-400); RED BLOOD CELL COUNT 2.88 mill/uL (4.2-5.4); RED CELL DISTRIBUTION WIDTH 19.0 % (11.6-14.6)
[2025-07-29 06:55] LABS: UREA NITROGEN BLOOD 58 mg/dL (9-23)
[2025-07-29 06:57] LABS: PHOSPHORUS 4.5 mg/dL (2.5-4.9)
[2025-07-29 07:09] LABS: CREATININE 6.8 mg/dL (0.6-1.0)
[2025-07-29 09:09] LABS: BG BASE EXCESS -1.8 mmol/L (-2.0-3.0); BG CARBOXYHEMOGLOBIN 0.3 % (0.5-1.5); BG DEOXYHEMOGLOBIN 1.2 % (0.0-5.0); BG FRACTION INSPIRED OXYGEN 40; BG HCO3 ACT 23.0 mmol/L (21.0-28.0); BG METHEMOGLOBIN 0.3 % (0.5-1.5); BG OXYGEN SATURATION 98.8 % (94.0-98.0); BG OXYHEMOGLOBIN 98.2 % (94.0-98.0); BG PCO2 39.2 mmHg (32.0-45.0); BG PEEP (cmH2O) 5.0 cmH2O; BG PH 7.387 (7.350-7.450); BG PO2 143.6 mmHg (83.0-108.0); BG SAMPLE SITE RIGHT RADIAL; BG TIDAL VOLUME(mL) 400.0 mL; BG TOTAL HEMOGLOBIN 9.2 g/dL (12.0-16.0); BG TOTAL RESPIRATORY RATE 15 b/min; BG VENT MODE VENT - SIMV; BG VENT RATE 10.0 set
[2025-07-29] MEDS: SODIUM ZIRCONIUM CYCLOSILICATE 10GM/PACKET PO SCH (11:25)
[2025-07-29 12:10] LABS: BG BASE EXCESS -1.0 mmol/L (-2.0-3.0); BG CARBOXYHEMOGLOBIN 0.7 % (0.5-1.5); BG DEOXYHEMOGLOBIN 1.3 % (0.0-5.0); BG FRACTION INSPIRED OXYGEN 40; BG HCO3 ACT 23.8 mmol/L (21.0-28.0); BG METHEMOGLOBIN 0.3 % (0.5-1.5); BG OXYGEN SATURATION 98.7 % (94.0-98.0); BG OXYHEMOGLOBIN 97.7 % (94.0-98.0); BG PCO2 40.1 mmHg (32.0-45.0); BG PEEP (cmH2O) 5.0 cmH2O; BG PH 7.391 (7.350-7.450); BG PO2 139.6 mmHg (83.0-108.0); BG SAMPLE SITE RIGHT RADIAL; BG TOTAL HEMOGLOBIN 9.1 g/dL (12.0-16.0); BG VENT MODE VENT - CPAP
[2025-07-29 17:37] LABS: BAND% 2.0 % (1.0-6.0); MONOCYTES % MANUAL 3.0 % (2.0-8.0); NEUTROPHILS % MANUAL 95.0 % (45.0-75.0); PLATELET ESTIMATE NORMAL; PLATELET SATELLITISM FEW
[2025-07-29] MEDS ORDERED: NALOXONE HCL 0.4MG/ML VIAL IV PRN (19:45)
[2025-07-29] MEDS ORDERED: MORPHINE SULFATE 2 MG/ML INJ (NOT FOR IM USE) IV PRN (19:45)
[2025-07-29 20:02] LABS: LYMPHOCYTES % MANUAL 0.0 % (20.0-60.0)
[2025-07-29] MEDS: ONDANSETRON HCL 4MG/2ML INJ IV PRN (20:15)
[2025-07-29] MEDS: MORPHINE SULFATE 4 MG/ML INJ (FOR IV/IM USE) IV PRN (20:15)
[2025-07-30] VITALS (76 sets, daily range): BP systolic 91–149; BP diastolic 38–75; PULSE 69–105; RESP 9–31; TEMP 36.44736–36.61404; O2SAT 92–100
[2025-07-31] VITALS (54 sets, daily range): BP systolic 107–150; BP diastolic 34–92; PULSE 71–98; RESP 10–29; TEMP 36.3–37.1; O2SAT 96–100
[2025-07-31 06:51] LABS: HEMATOCRIT. 29.4 % (36.0-48.0); HEMOGLOBIN. 8.6 g/dL (12.0-16.0); MEAN PLATELET VOLUME 8.9 fl (7.4-10.4); PLATELET 307 x1000/uL (130-400); RED BLOOD CELL COUNT 3.01 mill/uL (4.2-5.4); RED CELL DISTRIBUTION WIDTH 19.0 % (11.6-14.6)
[2025-07-31 07:07] LABS: UREA NITROGEN BLOOD 59.0 mg/dL (9-23)
[2025-07-31 08:41] LABS: CREATININE 6.2 mg/dL (0.6-1.0)
[2025-07-31 13:39] LABS: BAND% 2.0 % (1.0-6.0); LYMPHOCYTES % MANUAL 3.0 % (20.0-60.0); METAMYELOCYTES % 2.0 % (0-0); MONOCYTES % MANUAL 4.0 % (2.0-8.0); MYELOCYTES % 1.0 % (0-0); NEUTROPHILS % MANUAL 88.0 % (45.0-75.0); PLATELET ESTIMATE NORMAL
[2025-07-31] MEDS: MORPHINE SULFATE 4 MG/ML INJ (FOR IV/IM USE) IV PRN (17:20)
[2025-07-31] MEDS: AZITHROMYCIN 500MG/250ML 250 ML IV SCH (17:29)
[2025-07-31] MEDS: VANCOMYCIN 500 MG in DEXT 5% WATER 100 ML IV SCH (17:30)
[2025-07-31 21:50] LABS: INR 1.0
[2025-07-31] MEDS: METHYLPREDNISOLONE SOD SUCC 40MG/ML (ACT-O-VIAL) IV SCH (22:34)
[2025-08-01] VITALS (92 sets, daily range): BP systolic 87–176; BP diastolic 38–80; PULSE 55–99; RESP 7–31; TEMP 35.5–36.9; O2SAT 95–100
[2025-08-01] MEDS: LACTOBACILLUS RHAMNOSUS GG CAP PO SCH (02:59)
[2025-08-01 08:23] LABS: UREA NITROGEN BLOOD 75.0 mg/dL (9-23)
[2025-08-01 08:24] LABS: HEMATOCRIT. 27.7 % (36.0-48.0); HEMOGLOBIN. 8.6 g/dL (12.0-16.0); MEAN PLATELET VOLUME 9.0 fl (7.4-10.4); PLATELET 346 x1000/uL (130-400); RED BLOOD CELL COUNT 2.97 mill/uL (4.2-5.4); RED CELL DISTRIBUTION WIDTH 18.8 % (11.6-14.6)
[2025-08-01 08:26] LABS: CREATININE 7.2 mg/dL (0.6-1.0)
[2025-08-01 21:04] LABS: BAND% 2.0 % (1.0-6.0); LYMPHOCYTES % MANUAL 1.0 % (20.0-60.0); METAMYELOCYTES % 2.0 % (0-0); MONOCYTES % MANUAL 4.0 % (2.0-8.0); NEUTROPHILS % MANUAL 91.0 % (45.0-75.0); PLATELET ESTIMATE SLIGHTLY INCREASED
[2025-08-01] MEDS: DIPHENHYDRAMINE 50MG/ML VIAL IV PRN (21:44)
[2025-08-02] VITALS (77 sets, daily range): BP systolic 89–190; BP diastolic 28–137; PULSE 66–112; RESP 9–23; TEMP 36.1–36.6; O2SAT 91–100
[2025-08-02] MEDS: ACETYLCYSTEINE 200MG/ML 20% VIAL 4ML INH SCH (12:27)
[2025-08-02] MEDS: IPRATROPIUM/ALBUTEROL 0.5-3(2.5)MG/3ML NEB HHN PRN (12:28)
[2025-08-02] MEDS ORDERED: DILT120C46 PO (17:02)
[2025-08-02 18:26] LABS: HEMATOCRIT. 27.7 % (36.0-48.0); HEMOGLOBIN. 8.2 g/dL (12.0-16.0); MEAN PLATELET VOLUME 8.8 fl (7.4-10.4); PLATELET 302 x1000/uL (130-400); RED BLOOD CELL COUNT 2.89 mill/uL (4.2-5.4); RED CELL DISTRIBUTION WIDTH 20.0 % (11.6-14.6)
[2025-08-02 18:32] LABS: UREA NITROGEN BLOOD 53.0 mg/dL (9-23)
[2025-08-02 18:51] LABS: CREATININE 5.6 mg/dL (0.6-1.0)
[2025-08-02 18:56] LABS: BAND% 1.0 % (1.0-6.0); EOSINOPHILS % MANUAL 2.0 % (0.0-5.0); LYMPHOCYTES % MANUAL 4.0 % (20.0-60.0); MONOCYTES % MANUAL 2.0 % (2.0-8.0); NEUTROPHILS % MANUAL 91.0 % (45.0-75.0); PLATELET ESTIMATE NORMAL
[2025-08-02] MEDS: METOPROLOL TARTRATE 25MG TABLET PO SCH (20:26)
[2025-08-03] VITALS (13 sets, daily range): BP systolic 108–154; BP diastolic 40–101; PULSE 72–92; RESP 10–21; TEMP 36.2–36.5; O2SAT 93–99
[2025-08-03 06:10] LABS: HEMATOCRIT. 31.2 % (36.0-48.0); HEMOGLOBIN. 9.4 g/dL (12.0-16.0); MEAN PLATELET VOLUME 8.9 fl (7.4-10.4); PLATELET 306 x1000/uL (130-400); RED BLOOD CELL COUNT 3.30 mill/uL (4.2-5.4); RED CELL DISTRIBUTION WIDTH 19.7 % (11.6-14.6)
[2025-08-03 06:35] LABS: UREA NITROGEN BLOOD 56 mg/dL (9-23)
[2025-08-03 06:46] LABS: CREATININE 6.1 mg/dL (0.6-1.0)
[2025-08-03 14:52] LABS: BAND% 2.0 % (1.0-6.0); LYMPHOCYTES % MANUAL 3.0 % (20.0-60.0); MONOCYTES % MANUAL 4.0 % (2.0-8.0); NEUTROPHILS % MANUAL 91.0 % (45.0-75.0)
[2025-08-03 14:53] LABS: PLATELET ESTIMATE NORMAL
[2025-08-03] MEDS: MIDODRINE HCL 5MG TABLET PO SCH (17:00)
[2025-08-04] VITALS (22 sets, daily range): BP systolic 110–155; BP diastolic 50–111; PULSE 75–107; RESP 11–23; TEMP 36.2–36.4; O2SAT 96–100
[2025-08-04 07:15] LABS: HEMATOCRIT. 29.0 % (36.0-48.0); HEMOGLOBIN. 9.0 g/dL (12.0-16.0); MEAN PLATELET VOLUME 8.7 fl (7.4-10.4); PLATELET 283 x1000/uL (130-400); RED BLOOD CELL COUNT 3.15 mill/uL (4.2-5.4); RED CELL DISTRIBUTION WIDTH 20.0 % (11.6-14.6)
[2025-08-04 07:36] LABS: UREA NITROGEN BLOOD 67 mg/dL (9-23)
[2025-08-04 07:38] LABS: PHOSPHORUS 5.0 mg/dL (2.5-4.9)
[2025-08-04 07:39] LABS: CREATININE 7.1 mg/dL (0.6-1.0)
[2025-08-04] MEDS ORDERED: AZIT500T8 MT (10:42)
[2025-08-04 11:40] LABS: BAND% 2.0 % (1.0-6.0); EOSINOPHILS % MANUAL 1.0 % (0.0-5.0); LYMPHOCYTES % MANUAL 2.0 % (20.0-60.0); MONOCYTES % MANUAL 3.0 % (2.0-8.0); NEUTROPHILS % MANUAL 92.0 % (45.0-75.0); PLATELET ESTIMATE NORMAL
[2025-08-05] VITALS (12 sets, daily range): BP systolic 117–152; BP diastolic 46–83; PULSE 79–118; RESP 13–18; TEMP 36.2–36.6; O2SAT 94–99
[2025-08-05 05:38] LABS: HEMATOCRIT. 27.3 % (36.0-48.0); HEMOGLOBIN. 8.6 g/dL (12.0-16.0); MEAN PLATELET VOLUME 9.0 fl (7.4-10.4); PLATELET 279 x1000/uL (130-400); RED BLOOD CELL COUNT 2.98 mill/uL (4.2-5.4); RED CELL DISTRIBUTION WIDTH 20.0 % (11.6-14.6)
[2025-08-05 05:56] LABS: UREA NITROGEN BLOOD 46.0 mg/dL (9-23)
[2025-08-05 06:15] LABS: CREATININE 5.6 mg/dL (0.6-1.0)
[2025-08-05 17:43] LABS: LYMPHOCYTES % MANUAL 4.0 % (20.0-60.0); MONOCYTES % MANUAL 6.0 % (2.0-8.0); NEUTROPHILS % MANUAL 90.0 % (45.0-75.0); PLATELET ESTIMATE NORMAL
== END 2025-08-05 15:58 | disposition home health service (06) | DRG 853 ==
LOC: ER 13:21 → EDBEDREQSVC 17:35 → EDBEDREQ 17:35 → EDBEDREQTM 17:35 → CVICU 21:56 → 5EST 08-02 23:58
PROVIDERS: ADMIT Internal Medicine; ATTEND Internal Medicine
PROC: 02C Heart and Great Vessels, Extirpation (ICD-10-PCS; principal; 2025-07-23)
PROC: B24BZZ4 Ultrasonography of Heart with Aorta, Transesophageal (ICD-10-PCS; 2025-07-23)
PROC: 5A1D70Z Performance of Urinary Filtration, Intermittent, Less than 6 Hours Per Day (ICD-10-PCS; 2025-07-24)
PROC: 0BH17EZ Insertion of Endotracheal Airway into Trachea, Via Natural or Artificial Opening (ICD-10-PCS; 2025-07-25)
PROC: 5A1955Z Respiratory Ventilation, Greater than 96 Consecutive Hours (ICD-10-PCS; 2025-07-25)
PROC: 5A1D70Z Performance of Urinary Filtration, Intermittent, Less than 6 Hours Per Day (ICD-10-PCS; 2025-07-26)
PROC: 0W993ZZ Drainage of Right Pleural Cavity, Percutaneous Approach (ICD-10-PCS; 2025-07-27)
PROC: 5A1D70Z Performance of Urinary Filtration, Intermittent, Less than 6 Hours Per Day (ICD-10-PCS; 2025-07-28)
PROC: 5A1D70Z Performance of Urinary Filtration, Intermittent, Less than 6 Hours Per Day (ICD-10-PCS; 2025-07-30)
PROC: 0W993ZZ Drainage of Right Pleural Cavity, Percutaneous Approach (ICD-10-PCS; 2025-08-01)
PROC: 5A1D70Z Performance of Urinary Filtration, Intermittent, Less than 6 Hours Per Day (ICD-10-PCS; 2025-08-01)
PROC: 5A1D70Z Performance of Urinary Filtration, Intermittent, Less than 6 Hours Per Day (ICD-10-PCS; 2025-08-04)
DX: A41.9 Sepsis, unspecified organism (principal); J18.9 Pneumonia, unspecified organism; N18.6 End stage renal disease; R65.21 Severe sepsis with septic shock; J96.01 Acute respiratory failure with hypoxia; J93.83 Other pneumothorax; T81.506A Unspecified complication of foreign body accidentally left in body following aspiration, puncture or other catheterization, initial encounter; I48.20 Chronic atrial fibrillation, unspecified; R18.8 Other ascites; C56.9 Malignant neoplasm of unspecified ovary; J91.0 Malignant pleural effusion; I31.39 Other pericardial effusion (noninflammatory); I13.11 Hypertensive heart and chronic kidney disease without heart failure, with stage 5 chronic kidney disease, or end stage renal disease; I31.4 Cardiac tamponade; E11.22 Type 2 diabetes mellitus with diabetic chronic kidney disease; Y83.1 Surgical operation with implant of artificial internal device as the cause of abnormal reaction of the patient, or of later complication, without mention of misadventure at the time of the procedure; Y84.8 Other medical procedures as the cause of abnormal reaction of the patient, or of later complication, without mention of misadventure at the time of the procedure; E78.5 Hyperlipidemia, unspecified; Z99.2 Dependence on renal dialysis; E11.65 Type 2 diabetes mellitus with hyperglycemia; D64.9 Anemia, unspecified; Z68.31 Body mass index [BMI] 31.0-31.9, adult; E83.51 Hypocalcemia; F43.22 Adjustment disorder with anxiety; K80.20 Calculus of gallbladder without cholecystitis without obstruction; Z55.6 Problems related to health literacy; Z79.01 Long term (current) use of anticoagulants
CPT/HCPCS: 31500; 31720; 32555; 36415; 36430; 36600; 71045; 71250; 76604; 80048; 80051; 80053; 80076; 80162; 80202; 82040; 82375; 82805; 82962; 83036; 83605; 83615; 83735; 83880; 84100; 84145; 84443; 84484; 85014; 85018; 85025; 85347; 85520; 86705; 86709; 86850; 86900; 86920; 87015; 87045; 87070; 87340; 87427; 87449; 88108; 88300; 88312; 90935; 93005; 93306; 93970; 94002; 94003; 94070; 94640; 94664; 94760; 96361; 96365; 96367; 96368; 96375; 97162; 98960; 99291; A4606; C1729; C1751; J0282; J0456; J0461; J0690; J0696; J0885; J1160; J1200; J1265; J1644; J1650; J1815; J2003; J2250; J2270; J2371; J2405; J2470; J2543; J2919; J3010; J3373; J3490; J7030; J7060; J7608; L3908; P9041